=== PATIENT | female | born 1975 | race Two or more races ===

== ENCOUNTER 2018-05-18 11:27 | Emergency (ER) | payer BC ==
[2018-05-18] MEDS ORDERED: NORMAL SALINE 1000 ML 1,000 ML IV ONE (11:44)
[2018-05-18] MEDS ORDERED: KETOROLAC TROMETHAMINE INJ/PF 30 MG/1 ML SDV IV ONE (12:03)
[2018-05-18] MEDS ORDERED: ACETAMINOPHEN 325 MG TABLET PO ONE (12:04)
--- NOTE | 2018-05-18 12:07 | ER Document Report ---
ED General - General Chief Complaint: Pain All Over Stated Complaint: FEVER Time Seen by Provider: 05/18/18 11:37 TRAVEL OUTSIDE OF THE [place] IN LAST 30 DAYS: No - HPI Notes: Patient is a 42-year-old female that presents to the emergency department for chief complaint of fever. Patient began having a fever last night. She also reports dysuria with a malodor to her urine for the last few days. She states today she noticed diffuse body aching and cramping in her legs. She has not taken any medication at home for her pain. She denies any aggravating or relieving factors. She did not get a influenza vaccine this year. She denies any sinus congestion cough, chest pain or shortness of breath. She does endorse some nausea with no vomiting or diarrhea. Last night she had a brief episode of left upper quadrant abdominal pain which she states is now resolved. Patient is Frisian-speaking and HPI was translated by family at bedside. Past Medical History: Hyperthyroidism Past Surgical History: , appendectomy Social History: Occasional alcohol. Denies tobacco and drug use Family History: Reviewed and noncontributory for presenting illness Allergies: Reviewed, see documented allergy list. REVIEW OF SYSTEMS: CONSTITUTIONAL : fever chills No diaphoresis No recent illness EENT: No vision changes No congestion No sore throat CARDIOVASCULAR: No chest pain No palpitations RESPIRATORY: No shortness of breath No cough No difficulty breathing GASTROINTESTINAL: abdominal pain nausea No vomiting No diarrhea GENITOURINARY: dysuria No hematuria No difficulty urinating MUSCULOSKELETAL: No back pain No leg pain No arm pain SKIN: No rashes No lesions LYMPHATIC: No swollen, enlarged glands. NEUROLOGICAL: No lightheadedness No headache No weakness No paresthesias PSYCHIATRIC: No anxiety No depression PHYSICAL EXAMINATION: Vital signs reviewed, nursing noted reviewed. GENERAL: Well-appearing, well-nourished and in no acute distress. HEAD: Atraumatic, normocephalic. EYES: Eyes appear normal, extraocular movements intact, sclera anicteric, conjunctiva are normal. ENT: nares patent, oropharynx clear without exudates. Moist mucous membranes. NECK: Normal range of motion, supple without lymphadenopathy LUNGS: Breath sounds clear to auscultation bilaterally and equal. No wheezes rales or rhonchi. HEART: Tachycardic and regular rhythm without murmurs ABDOMEN: Soft, nontender, normoactive bowel sounds. No rebound, guarding, or rigidity. No masses appreciated. EXTREMITIES: Nontender, good range of motion, no pitting or edema. NEUROLOGICAL: No focal neurological deficits. Moves all extremities spontaneou sly Motor and sensory grossly intact on exam. PSYCH: Normal mood, normal affect. SKIN: Warm, Dry, normal turgor, no rashes or lesions noted on exposed skin - Related Data Allergies/Adverse Reactions: No Known Allergies Allergy (Unverified 05/18/18 11:31) Past Medical History - Social History Smoking Status: Never Smoker Family History: Reviewed & Not Pertinent Physical Exam - Vital signs Vitals: Temp Pulse Resp BP Pulse Ox 100.6 F H 129 H 18 130/82 H 98 05/18/18 11:34 05/18/18 11:34 05/18/18 11:34 05/18/18 11:34 05/18/18 11:34 Course - Re-evaluation Re-evalutation: 05/18/18 12:06 Vitals reviewed. Nursing notes reviewed. Patient is febrile and was given Toradol, Tylenol, and IV fluids for symptomatic management 05/18/18 13:44 Laboratory 05/18/18 05/18/18 05/18/18 12:02 12:02 12:02 WBC 10.0 RBC 4.39 Hgb 12.6 Hct 37.1 MCV 85 MCH 28.8 MCHC 34.0 RDW 14.4 H Plt Count 347 Total Counted 100 Seg Neutrophils % Not Reportable Seg Neuts % (Manual) 93 H Band Neutrophils % 4 Lymphocytes % Not Reportable Lymphocytes % (Manual) 2 L Monocytes % Not Reportable Monocytes % (Manual) 0 L Eosinophils % Not Reportable Eosinophils % (Manual) 1 Basophils % Not Reportable Basophils % (Manual) 0 Absolute Neutrophils Not Reportable Abs Neuts (Manual) 9.7 H Absolute Lymphocytes Not Reportable Abs Lymphs (Manual) 0.2 L Absolute Monocytes Not Reportable Abs Monocytes (Manual) 0.0 L Absolute Eosinophils Not Reportable Absolute Eos (Manual) 0.1 Absolute Basophils Not Reportable Abs Basophils (Manual) 0.0 Toxic Granulation SLIGHT Platelet Comment ADEQUATE RBC Morph Comment NORMO-CYTIC/CHROMIC VBG pH VBG pCO2 VBG HCO3 VBG Base Excess Sodium 140.0 Potassium 4.0 Chloride 103 Carbon Dioxide 24 Anion Gap 13 BUN 12 Creatinine 0.76 Est GFR ( Amer) > 60 Est GFR (Non-Af Amer) > 60 Glucose 110 Lactic Acid 1.5 Calcium 9.4 Total Bilirubin 0.7 Direct Bilirubin 0.3 Neonat Total Bilirubin Not Reportable Neonat Direct Bilirubin Not Reportable Neonat Indirect Bili Not Reportable AST 24 ALT 9 Alkaline Phosphatase 93 Total Protein 8.0 Albumin 4.5 Urine Color Urine Appearance Urine pH Ur Specific [place] Urine Protein Urine Glucose (UA) Urine Ketones Urine Blood Urine Nitrite Urine Bilirubin Urine Urobilinogen Ur Leukocyte Esterase Urine WBC (Auto) Urine RBC (Auto) Urine Bacteria (Auto) Squamous Epi Cells Auto Urine Mucus (Auto) Urine Ascorbic Acid Urine HCG, Qual Influenza A (Rapid) Influenza B (Rapid) 05/18/18 05/18/18 05/18/18 12:02 12:02 12:18 WBC RBC Hgb Hct MCV MCH MCHC RDW Plt Count Total Counted Seg Neutrophils % Seg Neuts % (Manual) Band Neutrophils % Lymphocytes % Lymphocytes % (Manual) Monocytes % Monocytes % (Manual) Eosinophils % Eosinophils % (Manual) Basophils % Basophils % (Manual) Absolute Neutrophils Abs Neuts (Manual) Absolute Lymphocytes Abs Lymphs (Manual) Absolute Monocytes Abs Monocytes (Manual) Absolute Eosinophils Absolute Eos (Manual) Absolute Basophils Abs Basophils (Manual) Toxic Granulation Platelet Comment RBC Morph Comment VBG pH 7.48 H VBG pCO2 33.4 L VBG HCO3 24.0 VBG Base Excess 1.0 Sodium Potassium Chloride Carbon Dioxide Anion Gap BUN Creatinine Est GFR ( Amer) Est GFR (Non-Af Amer) Glucose Lactic Acid Calcium Total Bilirubin Direct Bilirubin Neonat Total Bilirubin Neonat Direct Bilirubin Neonat Indirect Bili AST ALT Alkaline Phosphatase Total Protein Albumin Urine Color YELLOW Urine Appearance CLEAR Urine pH 7.0 Ur Specific [place] 1.005 Urine Protein NEGATIVE Urine Glucose (UA) NEGATIVE Urine Ketones NEGATIVE Urine Blood NEGATIVE Urine Nitrite NEGATIVE Urine Bilirubin NEGATIVE Urine Urobilinogen NEGATIVE Ur Leukocyte Esterase TRACE H Urine WBC (Auto) 4 Urine RBC (Auto) 1 Urine Bacteria (Auto) TRACE Squamous Epi Cells Auto 4 Urine Mucus (Auto) RARE Urine Ascorbic Acid NEGATIVE Urine HCG, Qual NEGATIVE Influenza A (Rapid) NEGATIVE Influenza B (Rapid) NEGATIVE Chest X-Ray 05/18/18 11:44 IMPRESSION: NO ACUTE RADIOGRAPHIC FINDING IN THE CHEST. on reevaluation patient states she is feeling better and appears nontoxic. Her diffuse muscle aching has improved. She is now complaining of some low back pain. She has no midline lumbar tenderness or paraspinal tenderness. Patient will be given Flexeril and Naprosyn for symptomatic management at home. Her urinalysis does show borderline urinary tract infection however with her having dysuria and low back pain she will be started on Keflex for UTI. Urine culture was sent. Patient is hemodynamically stable. She will be discharged home. She was counseled on increasing oral hydration and continuing Tylenol and ibuprofen as needed for fevers. She will return to the emergency room for any new or worsening symptoms. She will otherwise follow with primary care for close reevaluation as an outpatient. - Vital Signs Vital signs: Temp Pulse Resp BP Pulse Ox 100.6 F H 129 H 14 115/81 99 05/18/18 11:34 05/18/18 11:34 05/18/18 13:00 05/18/18 13:00 05/18/18 13:00 - Laboratory Result Diagrams: 05/18/18 12:02 05/18/18 12:02 Laboratory results interpreted by me: 05/18/18 05/18/18 05/18/18 12:02 12:02 12:02 RDW 14.4 H Seg Neuts % (Manual) 93 H Lymphocytes % (Manual) 2 L Monocytes % (Manual) 0 L Abs Neuts (Manual) 9.7 H Abs Lymphs (Manual) 0.2 L Abs Monocytes (Manual) 0.0 L VBG pH 7.48 H VBG pCO2 33.4 L Ur Leukocyte Esterase TRACE H Discharge - Discharge Clinical Impression: UTI (urinary tract infection) Qualifiers: Urinary tract infection type: site unspecified Hematuria presence: without hematuria Qualified Code(s): N39.0 - Urinary tract infection, site not specified Condition: Stable Disposition: HOME, SELF-CARE Instructions: Urinary Tract Infection ([facility]), Cephalexin ([facility]), Family Physicians / Practices Additional Instructions: Please return to the emergency department if you have any worsening, or concern of your symptoms. Please return to the emergency department if you develop chest pain, difficulty breathing, severe abdominal pain, or ongoing vomiting. Please follow-up with your primary care physician in 2-3 days and any other recommended physicians. If prescribed, take all medications as directed. If you have any questions or concerns do not hesitate to return the emergency department for evaluation. Return to the emergency room for any new or worsening symptoms including neck stiffness, headache, intractable vomiting, and abdominal pain Prescriptions: Cephalexin Monohydrate [Keflex 500 mg Capsule] 500 mg PO Q6H 5 Days capsule Cyclobenzaprine HCl [Flexeril 10 mg Tablet] 10 mg PO TIDP PRN #14 tablet PRN Reason: Pain Scale Of 1 Naproxen 500 mg PO BID PRN #30 tablet PRN Reason: Pain Referrals: [facility] [Provider Group] - Follow up as needed
[2018-05-18 12:18] LABS: VENOUS BLOOD PCO2 33.4 mmHg (35-63); VENOUS BLOOD PH 7.48 (7.30-7.42)
[2018-05-18 12:22] LABS: HEMATOCRIT 37.1 % (36.0-47.0); HEMOGLOBIN 12.6 g/dL (12.0-15.5); MEAN CORPUSCULAR HEMOGLOBIN 28.8 pg (27.0-33.4); MEAN CORPUSCULAR VOLUME 85 fl (80-97); PLATELET COUNT 347 10^3/uL (150-450); RED BLOOD COUNT 4.39 10^6/uL (3.72-5.28); RED CELL DISTRIBUTION WIDTH 14.4 % (11.5-14.0)
--- NOTE | 2018-05-18 12:24 | RADIOLOGY REPORT (SQ) ---
EXAM DESCRIPTION: CHEST SINGLE VIEW COMPLETED DATE/TIME: 05/18/2018 12:13 pm REASON FOR STUDY: BED 14 SEPSIS PROTOCOL COMPARISON: None. EXAM PARAMETERS: NUMBER OF VIEWS: One view. TECHNIQUE: Single frontal radiographic view of the chest acquired. RADIATION DOSE: NA LIMITATIONS: None. FINDINGS: LUNGS AND PLEURA: No opacities, masses or pneumothorax. No pleural effusion. MEDIASTINUM AND HILAR STRUCTURES: No masses. Contour normal. HEART AND VASCULAR STRUCTURES: Heart normal in size. Normal vasculature. BONES: No acute findings. HARDWARE: None in the chest. OTHER: No other significant finding. IMPRESSION: NO ACUTE RADIOGRAPHIC FINDING IN THE CHEST. TECHNICAL DOCUMENTATION: JOB ID: [id number] [employer]- All Rights Reserved Reading location - IP/workstation name: [facility]-[email or web address]
[2018-05-18 12:29] LABS: ALANINE AMINOTRANSFERASE 9 U/L (9-52); ALBUMIN 4.5 g/dL (3.5-5.0); ALKALINE PHOSPHATASE 93 U/L (38-126); ANION GAP 13 (5-19); ASPARTATE AMINO TRANSFERASE 24 U/L (14-36); BILIRUBIN,DIRECT 0.3 mg/dL (0.0-0.4); BILIRUBIN,TOTAL 0.7 mg/dL (0.2-1.3); BLOOD UREA NITROGEN 12 mg/dL (7-20); CALCIUM 9.4 mg/dL (8.4-10.2); CARBON DIOXIDE 24 mmol/L (22-30); CHLORIDE 103 mmol/L (98-107); GLUCOSE 110 mg/dL (75-110)
[2018-05-18 12:52] LABS: A TYPE INFLUENZA AG NEGATIVE (NEGATIVE); B INFLUENZA AG NEGATIVE (NEGATIVE)
[2018-05-18 12:52] LABS: APPEARANCE,URINE CLEAR; BILIRUBIN,URINE NEGATIVE (NEGATIVE); COLOR,URINE YELLOW; GLUCOSE, URINE NEGATIVE (NEGATIVE); KETONES,URINE NEGATIVE (NEGATIVE); LEUKOCYTE ESTERASE,URINE TRACE (NEGATIVE); NITRITE,URINE NEGATIVE (NEGATIVE); PROTEIN,URINE NEGATIVE (NEGATIVE); URINE SPECIFIC GRAVITY 1.005; UROBILINOGEN,URINE NEGATIVE mg/dL (<2.0)
[2018-05-18 12:57] LABS: ABSOLUTE LYMPHOCYTES# (MANUAL) 0.2 10^3/uL (0.5-4.7); ABSOLUTE NEUTROPHILS# (MANUAL) 9.7 10^3/uL (1.7-8.2); BAND NEUTROPHILS % (MANUAL) 4 % (3-5); BASOPHILS % (MANUAL) 0 % (0-2); EOSINOPHILS % (MANUAL) 1 % (0-6); LYMPHOCYTES % (MANUAL) 2 % (13-45); MONOCYTES % (MANUAL) 0 % (3-13); PLATELET COMMENT ADEQUATE; RBC MORPHOLOGY COMMENT NORMO-CYTIC/CHROMIC; SEGMENTED NEUTROPHILS % (MAN) 93 % (42-78); TOTAL CELLS COUNTED 100; TOXIC GRANULATION SLIGHT
[2018-05-18] MEDS ORDERED: CYCLOBENZAPRINE HCL 10 MG TABLET PO ONE (13:44)
[2018-05-18] MEDS ORDERED: CEPHALEXIN 500 MG CAPSULE PO ONE (13:44)
[2018-05-18 14:42] VITALS: BP 126/72
== END 2018-05-18 14:31 | disposition home or self-care (01) ==
LOC: ER 11:27
DX: N39.0 Urinary tract infection, site not specified (principal); M79.10 Myalgia, unspecified site; R50.9 Fever, unspecified
CPT/HCPCS: 99284; 96361; 96374; 36415; 87040; 87086; 85025; 81025; 87088; 80053; 81001; 87186; 82803; 83605; 87804; 71045; J1885; J7030

== ENCOUNTER → 2018-06-13 | Outpatient (CLI) | payer BC ==
--- NOTE | 2018-06-13 13:38 | WOMENS IMAGING REPORT ---
EXAM DESCRIPTION: BILAT DIAGNOSTIC MAMMO W/CAD COMPLETED DATE/TIME: 06/13/2018 1:25 pm REASON FOR STUDY: N63.23 UNSPECIFIED LUMP IN THE LEFT BREAST, LOWER OUTER QUADRANT N63.23 UNSPECIFI ED LUMP IN THE LEFT BREAST, LOWER OUTER QUAD E04.9 NONTOXIC GOITER, UNSPECIFIED COMPARISON: None. TECHNIQUE: Standard craniocaudal and mediolateral oblique views of each breast recorded using digita l acquisition. True lateral view left breast. LIMITATIONS: None. FINDINGS: RIGHT BREAST MASSES: No suspicious masses. CALCIFICATIONS: No new or suspicious calcifications. ARCHITECTURAL DISTORTION: None. DEVELOPING DENSITY: None. ASYMMETRY: None noted. OTHER: No other significant findings. LEFT BREAST MASSES: No suspicious masses. CALCIFICATIONS: No new or suspicious calcifications. ARCHITECTURAL DISTORTION: None. DEVELOPING DENSITY: None. ASYMMETRY: None noted. OTHER: No other significant finding. Read with the assistance of CAD: .[facility] - R2 Cenova Version 1.3 .[facility] Imaging - R2 Cenova Version 1.3 .[facility] Imaging - R2 Cenova Version 2.4 .[facility] - R2 Cenova Version 2.4 .[facility] - R2 Brush Filler Hand Version 9.2 Patient reports left breast pain but no palpable abnormality. IMPRESSION: No evidence of malignancy. BREAST DENSITY: b. There are scattered areas of fibroglandular density. BIRAD: 1 Negative. RECOMMENDATION: RECOMMENDED FOLLOW UP: Birads 1 or 2: No breast imaging finding to explain the patie nt's presenting complaint. Further intervention should be based on the degree of clinical suspicion. SPECIFIC INTERVENTION/IMAGING/CONSULTATION RECOMMENDED:No additional intervention/ imaging/consultati on needed at this time. COMMUNICATION:The imaging findings were not discussed with the patient. Her referring provider has be en notified of the findings. COMMENT: The patient has been notified of the results by letter per SA requirements. Additional no tification policies are in place for contacting patient with suspicious or incomplete findings. Quality ID #[id number]: The [employer] recommends an annual screening mammogram for women aged 40 years or over. This facility utilizes a reminder system to ensure that all patients receive reminder letters, and/or direct phone calls for appointments. This includes reminders for routine scr eening mammograms, diagnostic mammograms, or other Breast Imaging Interventions when appropriate. Th is patient will be placed in the appropriate reminder system. The [employer] (ACR) has developed recommendations for screening MRI of the breast s in certain patient populations, to be used in conjunction with mammography. Breast MRI surveillanc e may be appropriate for women with more than 20% lifetime risk of developing breast cancer as deter mined by genetic testing, significant family history of the disease, or history of mantle radiation f or Hodgkins Disease. ACR Practice Guidelines 2008. TECHNICAL DOCUMENTATION: FINDING NUMBER: (1) ASSESSMENT: (1) JOB ID: [id number] [employer]- All Rights Reserved Reading location - IP/workstation name: [email or web address]
--- NOTE | 2018-06-13 14:12 | WOMENS IMAGING REPORT ---
EXAM DESCRIPTION: U/S THYROID/ST TIS HEAD NECK COMPLETED DATE/TIME: 06/13/2018 1:45 pm REASON FOR STUDY: E04.9 NONTOXIC GOITER, UNSPECIFIED N63.23 UNSPECIFIED LUMP IN THE LEFT BREAST, LO WER OUTER QUAD E04.9 NONTOXIC GOITER, UNSPECIFIED COMPARISON: None. TECHNIQUE: Dynamic and static haas-scale images acquired of the thyroid gland. Selected additional c olor/power Doppler images recorded. All images stored to PACS. LIMITATIONS: None. FINDINGS: RIGHT LOBE: 5.0 x 2.2 x 2.0 cm. Heterogeneous echotexture. No cystic or solid masses. LEFT LOBE: 5.3 x 1.8 x 2.4 cm. Heterogeneous echotexture. No cystic or solid masses. ISTHMUS: 8 mm. Heterogeneous echotexture. No cystic or solid masses. OTHER: No other significant finding. IMPRESSION: Enlarged heterogeneous gland. TECHNICAL DOCUMENTATION: JOB ID: [id number] [employer]- All Rights Reserved Reading location - IP/workstation name: [facility]
== END ==
LOC: WI 12:51
PROVIDERS: ATTEND Nurse Practitioner Family
DX: E04.9 Nontoxic goiter, unspecified (principal); N63.23 Unspecified lump in the left breast, lower outer quadrant; M79.643 Pain in unspecified hand
CPT/HCPCS: 76536; 77066

== ENCOUNTER → 2018-11-22 | Outpatient (CLI) | payer BC | LOC: OD 09:10 | PROVIDERS: ATTEND Internal Medicine | DX: E03.9 Hypothyroidism, unspecified (principal) | CPT/HCPCS: 36415; 84443 ==

== ENCOUNTER 2019-06-02 23:29 | Emergency (ER) | payer SELFPAY ==
[2019-06-03] MEDS ORDERED: ACETAMINOPHEN 325 MG TABLET PO ONE (00:38)
[2019-06-03 02:01] LABS: ABSOLUTE BASOPHILS # (AUTO) 0.1 10^3/uL (0.0-0.2); ABSOLUTE EOSINOPHILS # (AUTO) 0.3 10^3/uL (0.0-0.6); ABSOLUTE LYMPHOCYTES (AUTO) 3.1 10^3/uL (0.5-4.7); ABSOLUTE MONOCYTES (AUTO) 1.1 10^3/uL (0.1-1.4); ABSOLUTE NEUT (AUTO) 6.1 10^3/uL (1.7-8.2); BASOPHILS % (AUTO) 0.8 % (0-2); EOSINOPHILS % (AUTO) 2.5 % (0-6); HEMATOCRIT 36.9 % (36.0-47.0); HEMOGLOBIN 12.2 g/dL (12.0-15.5); LYMPHOCYTES % (AUTO) 29.3 % (13-45); MEAN CORPUSCULAR HEMOGLOBIN 27.4 pg (27.0-33.4); MEAN CORPUSCULAR HGB CONC 33.2 g/dL (32.0-36.0); MEAN CORPUSCULAR VOLUME 83 fl (80-97); PLATELET COUNT 325 10^3/uL (150-450); RED BLOOD COUNT 4.47 10^6/uL (3.72-5.28); RED CELL DISTRIBUTION WIDTH 15.6 % (11.5-14.0); SEGMENTED NEUTROPHILS % (AUTO) 57.4 % (42-78); TOTAL CELLS COUNTED % (AUTO) 100 %; WHITE BLOOD COUNT 10.7 10^3/uL (4.0-10.5)
[2019-06-03 02:17] LABS: ALBUMIN 4.6 g/dL (3.5-5.0); ALKALINE PHOSPHATASE 92 U/L (38-126); ANION GAP 11 (5-19); ASPARTATE AMINO TRANSFERASE 25 U/L (14-36); BILIRUBIN,DIRECT 0.2 mg/dL (0.0-0.4); BILIRUBIN,TOTAL 0.5 mg/dL (0.2-1.3); BLOOD UREA NITROGEN 11 mg/dL (7-20); CALCIUM 9.8 mg/dL (8.4-10.2); CARBON DIOXIDE 25 mmol/L (22-30); CHLORIDE 102 mmol/L (98-107); GLUCOSE 124 mg/dL (75-110); POTASSIUM 4.2 mmol/L (3.6-5.0); TOTAL PROTEIN 8.5 g/dL (6.3-8.2)
[2019-06-03 02:28] LABS: APPEARANCE,URINE SLIGHTLY-CLOUDY; BILIRUBIN,URINE NEGATIVE (NEGATIVE); COLOR,URINE YELLOW; GLUCOSE, URINE NEGATIVE (NEGATIVE); KETONES,URINE NEGATIVE (NEGATIVE); LEUKOCYTE ESTERASE,URINE LARGE (NEGATIVE); NITRITE,URINE POSITIVE (NEGATIVE); PROTEIN,URINE 30 mg/dL (NEGATIVE); URINE SPECIFIC GRAVITY 1.009; UROBILINOGEN,URINE NEGATIVE mg/dL (<2.0)
[2019-06-03] MEDS ORDERED: CEFTRIAXONE INJ 1000 MG VIAL IM ONE (05:41)
[2019-06-03] MEDS ORDERED: LIDOCAINE 1% INJ-PF (10 MG/ML) 30 ML SDV INJ ONE (05:41)
[2019-06-03] MEDS ORDERED: OXYCODONE HCL IR 5 MG TABLET PO ONE (05:41)
[2019-06-03] MEDS ORDERED: ONDANSETRON 4 MG TAB.RAPDIS PO ONE (05:41)
[2019-06-03] MEDS ORDERED: HYDROCODONE/ACETAMINOPHEN 5-325 MG (6 TAB/ER DISP) PO PRN (05:42)
--- NOTE | 2019-06-03 05:45 | ER Document Report ---
ED GI/ - General Chief Complaint: Flank Pain Stated Complaint: ABDOMINAL PAIN AND BACK PAIN Time Seen by Provider: 06/03/19 05:32 Notes: Patient is a 43-year-old female that comes to the emergency department for chief complaint of 3 days of worsening pain with urination, lower abdominal discomfort, and now she is starting to get pain mainly on the right side as well. Pain has been slowly progressive. She denies vomiting or nausea. She s tates she felt chills earlier today but she denies fever. She does not take any daily medications. She has had an appendectomy and hysterectomy. Patient speaks mainly Azeri and requests that her son at bedside translate for her. TRAVEL OUTSIDE OF THE [place] IN LAST 30 DAYS: No - Related Data Allergies/Adverse Reactions: No Known Allergies Allergy (Unverified 05/18/18 11:31) Home Medications: stopped thyroid 1 mnth ago no medicaid. Past Medical History - General Information source: Patient - Social History Smoking Status: Former Smoker Frequency of alcohol use: None Drug Abuse: None Lives with: Family Family History: Reviewed & Not Pertinent Patient has suicidal ideation: No Patient has homicidal ideation: No Renal/ Medical History: Denies: Hx Peritoneal Dialysis Past Surgical History: Reports: Hx Appendectomy, Hx Section - Immunizations Immunizations up to date: Yes Hx Diphtheria, Pertussis, Tetanus Vaccination: Yes Review of Systems - Review of Systems Constitutional: See HPI EENT: No symptoms reported Cardiovascular: No symptoms reported Respiratory: No symptoms reported Gastrointestinal: See HPI Genitourinary: See HPI Female Genitourinary: No symptoms reported Musculoskeletal: No symptoms reported Skin: No symptoms reported Hematologic/Lymphatic: No symptoms reported Neurological/Psychological: No symptoms reported Physical Exam - Vital signs Vitals: Temp Pulse Resp BP Pulse Ox 99.5 F 88 16 131/83 H 99 06/02/19 23:35 06/02/19 23:35 06/02/19 23:35 06/02/19 23:35 06/02/19 23:35 - Notes Notes: GENERAL: Alert, interacts well. No acute distress. Smiling talkative and well- appearing HEAD: Normocephalic, atraumatic. EYES: Pupils equal, round, and reactive to light. Extraocular movements intact. ENT: Oral mucosa moist, tongue midline. Oropharynx unremarkable. Airway patent. NECK: Full range of motion. Supple. Trachea midline. LUNGS: Clear to auscultation bilaterally, no wheezes, rales, or rhonchi. No respiratory distress. HEART: Regular rate and rhythm. No murmur ABDOMEN: There is some generalized lower abdominal tenderness GENITOURINARY: Deferred EXTREMITIES: Moves all 4 extremities spontaneously. No edema, normal radial and dorsalis pedis pulses bilaterally. No cyanosis. BACK: There is some mild right-sided CVA tenderness. No cervical, thoracic, lumbar midline tenderness. No saddle anesthesia, normal distal neurovascular exam. Moves all extremities in full range of motion. NEUROLOGICAL: Alert and oriented x3. Normal speech. Cranial nerves II through XII grossly intact. PSYCH: Normal affect, normal mood. SKIN: Warm, dry, normal turgor. No rashes or lesions noted. Course - Re-evaluation Re-evalutation: Patient is talkative, smiling, well-appearing. Vital signs unremarkable. CBC, chemistry with mild leukocytosis but otherwise unremarkable. Patient has had a hysterectomy and appendectomy. Urine is obviously infected, she has some CVA tenderness on the right and some lower abdominal tenderness. Based on slowly progressively worsening symptoms I have a lower suspicion of kidney stone, I did discuss this with patient. No imaging will be performed at this time with suspected pyelonephritis, culture placed, given Rocephin, started on antibiotics, discussed expectations, follow-up, return precautions. Patient states appreciation and agreement. Well-appearing at time of discharge with unremarkable vital signs. - Vital Signs Vital signs: Temp Pulse Resp BP Pulse Ox 97.8 F 76 18 145/82 H 99 06/03/19 06:08 06/03/19 06:08 06/03/19 06:08 06/03/19 06:08 06/03/19 06:08 - Laboratory Result Diagrams: 06/03/19 01:44 06/03/19 01:44 Laboratory results interpreted by me: 06/03/19 06/03/19 06/03/19 01:39 01:44 01:44 WBC 10.7 H RDW 15.6 H Glucose 124 H Total Protein 8.5 H Urine Protein 30 H Urine Blood LARGE H Urine Nitrite POSITIVE H Ur Leukocyte Esterase LARGE H Discharge - Discharge Clinical Impression: Flank pain, Dysuria Abdominal pain Qualifiers: Abdominal location: lower abdomen, unspecified Qualified Code(s): R10.30 - Lower abdominal pain, unspecified Urinary tract infection Qualifiers: Urinary tract infection type: site unspecified Hematuria presence: with hematuria Qualified Code(s): N39.0 - Urinary tract infection, site not specified Condition: Stable Disposition: HOME, SELF-CARE Additional Instructions: Your evaluation is most consistent with a developing kidney infection. This is a urinary tract infection. Please take the antibiotics as prescribed, take the pain medication prescribed if needed, drink plenty fluids and rest. Follow-up with primary care for additional management. Come back if you are worse including vomiting, spiking fevers, severe worsening pain, or any other concerning or worsening symptoms. El paciente presenta quejas de tos patt los ltimos 3 whalen. El paciente tambin informa nuseas. El paciente se queja de molestias en el pecho que empeoran con la tos. El paciente tambin informa cierta dificultad para respirar. El paciente tiene antecedentes de diabetes. El paciente no est seguro si jones tenido fiebre en casa. Prescriptions: Cephalexin Monohydrate [Keflex 500 mg Capsule] 500 mg PO BID 7 Days #14 capsule Forms: Return to Work
[2019-06-03 06:14] VITALS: BP 145/82
== END 2019-06-03 06:14 | disposition home or self-care (01) ==
LOC: ER 23:29
DX: N39.0 Urinary tract infection, site not specified (principal); R31.9 Hematuria, unspecified; R30.0 Dysuria; R10.30 Lower abdominal pain, unspecified; R10.9 Unspecified abdominal pain; Z87.891 Personal history of nicotine dependence; Z90.49 Acquired absence of other specified parts of digestive tract; Z90.710 Acquired absence of both cervix and uterus
CPT/HCPCS: 99284; 96372; 96374; 36415; 87086; 83690; 84703; 85025; 87088; 80053; 81001; 87186; S0119; J3490; J0696

== ENCOUNTER 2019-12-08 11:49 | Emergency (ER) | payer BC ==
[2019-12-08] MEDS ORDERED: MORPHINE SULFATE 10 MG/ML INJ IV ONE (14:15)
[2019-12-08] MEDS ORDERED: ONDANSETRON HCL INJ/PF 4 MG/2 ML SDV IV ONE ×2 (14:16→16:51)
[2019-12-08 14:26] LABS: APPEARANCE,URINE SLIGHTLY-CLOUDY; BILIRUBIN,URINE NEGATIVE (NEGATIVE); COLOR,URINE YELLOW; GLUCOSE, URINE NEGATIVE (NEGATIVE); KETONES,URINE NEGATIVE (NEGATIVE); LEUKOCYTE ESTERASE,URINE LARGE (NEGATIVE); NITRITE,URINE NEGATIVE (NEGATIVE); PROTEIN,URINE NEGATIVE (NEGATIVE); URINE SPECIFIC GRAVITY 1.004; UROBILINOGEN,URINE NEGATIVE mg/dL (<2.0)
[2019-12-08] MEDS: NORMAL SALINE 1000 ML 1,000 ML IV PRN ×2 (14:40→16:15)
[2019-12-08] MEDS ORDERED: NORMAL SALINE 1000 ML 1,000 ML IV ONE (14:52)
[2019-12-08] MEDS ORDERED: LEVOFLOXACIN 750 MG/D5W RTU 750 MG/150 ML RTUPB IV ONE (14:53)
[2019-12-08 15:07] LABS: ABSOLUTE BASOPHILS # (AUTO) 0.1 10^3/uL (0.0-0.2); ABSOLUTE EOSINOPHILS # (AUTO) 0.2 10^3/uL (0.0-0.6); ABSOLUTE LYMPHOCYTES (AUTO) 2.3 10^3/uL (0.5-4.7); ABSOLUTE MONOCYTES (AUTO) 0.8 10^3/uL (0.1-1.4); ABSOLUTE NEUT (AUTO) 8.3 10^3/uL (1.7-8.2); BASOPHILS % (AUTO) 0.9 % (0-2); EOSINOPHILS % (AUTO) 2.1 % (0-6); HEMATOCRIT 38.5 % (36.0-47.0); HEMOGLOBIN 12.7 g/dL (12.0-15.5); LYMPHOCYTES % (AUTO) 19.2 % (13-45); MEAN CORPUSCULAR HEMOGLOBIN 27.9 pg (27.0-33.4); MEAN CORPUSCULAR HGB CONC 33.1 g/dL (32.0-36.0); MEAN CORPUSCULAR VOLUME 84 fl (80-97); MONOCYTES % (AUTO) 7.1 % (3-13); PLATELET COUNT 308 10^3/uL (150-450); RED BLOOD COUNT 4.56 10^6/uL (3.72-5.28); RED CELL DISTRIBUTION WIDTH 15.6 % (11.5-14.0); SEGMENTED NEUTROPHILS % (AUTO) 70.7 % (42-78); TOTAL CELLS COUNTED % (AUTO) 100 %; WHITE BLOOD COUNT 11.8 10^3/uL (4.0-10.5)
[2019-12-08 15:31] LABS: ALBUMIN 4.5 g/dL (3.5-5.0); ALKALINE PHOSPHATASE 107 U/L (38-126); ANION GAP 10 (5-19); ASPARTATE AMINO TRANSFERASE 42 U/L (14-36); BILIRUBIN,DIRECT 0.1 mg/dL (0.0-0.4); BILIRUBIN,TOTAL 0.6 mg/dL (0.2-1.3); BLOOD UREA NITROGEN 13 mg/dL (7-20); CALCIUM 9.4 mg/dL (8.4-10.2); CARBON DIOXIDE 25 mmol/L (22-30); CHLORIDE 101 mmol/L (98-107); GLUCOSE 105 mg/dL (75-110); TOTAL PROTEIN 8.5 g/dL (6.3-8.2)
[2019-12-08] MEDS ORDERED: HYDROMORPHONE HCL INJ/PF 2 MG/ML AMPULE IV ONE (16:50)
--- NOTE | 2019-12-08 18:01 | RADIOLOGY REPORT (SQ) ---
EXAM DESCRIPTION: CT ABD/PELVIS WITH IV ONLY IMAGES COMPLETED DATE/TIME: 12/08/2019 4:18 pm REASON FOR STUDY: left flank pain. Patient states right flank pain. Prior appendectomy. COMPARISON: None. TECHNIQUE: CT scan of the abdomen and pelvis performed using helical scanning technique with dynamic intravenous contrast injection. No oral contrast. Images reviewed with lung, soft tissue, and bone windows. Reconstructed coronal and sagittal MPR images reviewed. Delayed images for evaluation of the urinary system also acquired. All images stored on PACS. All CT scanners at this facility use dose modulation, iterative reconstruction, and/or weight based d osing when appropriate to reduce radiation dose to as low as reasonably achievable (ALARA). [facility]: Dose Right [facility]: CareDose [facility]: Dose Right [facility]: Teradose 4D [facility]: MD [employer] CONTRAST TYPE AND DOSE: contrast/concentration: Isovue 350.00 mmol/ml; Total Contrast Delivered: 89. 0 ml; Total Saline Delivered: 70.0 ml RENAL FUNCTION: GFR > 60. RADIATION DOSE: CT Rad equipment meets quality standard of care and radiation dose reduction techniq ues were employed. CTDIvol: 14.2 - 14.3 mGy. DLP: 1482 mGy-cm.. LIMITATIONS: None. FINDINGS: LOWER CHEST: No significant findings. No nodules or infiltrates. LIVER: The liver has normal size and contour. There is severe diffuse hepatic steatosis. No focal h epatic mass. Hepatic and portal veins are patent. No biliary ductal dilation. SPLEEN: Normal size. No focal lesions. PANCREAS: No masses. No significant calcifications. No adjacent inflammation or peripancreatic fluid collections. Pancreatic duct not dilated. GALLBLADDER: No identified stones by CT criteria. No inflammatory changes to suggest cholecystitis. ADRENAL GLANDS: No significant masses or asymmetry. RIGHT KIDNEY AND URETER: There is heterogeneous enhancement at the superior pole right kidney with jewell ggestion of wedge shaped appearance. An indeterminate 1.3 cm lesion at the medial superior right kid larry may represent part of this process, however is technically indeterminate. No renal or ureteral c alculi. Mild right hydronephrosis and hydroureter. No definitive transition point. No obstructio n. No perinephric or periureteral inflammatory change or fluid. LEFT KIDNEY AND URETER: No solid masses. No significant calcifications. No hydronephrosis or hydr oureter. AORTA AND VESSELS: No aneurysm. No dissection. Renal arteries, SMA, celiac without stenosis. RETROPERITONEUM: No retroperitoneal adenopathy, hemorrhage or masses. BOWEL AND PERITONEAL CAVITY: No masses or inflammatory changes. No free fluid or peritoneal masses. APPENDIX: Normal. PELVIS: Heterogeneously enhancing left adnexal mass, completely separate from the left ovary which jones s normal size. This appears to be attached to the left lower uterine segment measuring about 5.6 x 4 .9 cm and demonstrates heterogeneous enhancement. This likely represents a low uterine leiomyoma, ho wever is indeterminate. The right ovary has normal size and position. Urinary bladder has normal co ntour. No bladder wall thickening, intraluminal bladder mass or debris. ABDOMINAL WALL: No masses. No hernias. BONES: No significant or acute findings. OTHER: No other significant finding. IMPRESSION: 1. Heterogeneous enhancement of the superior pole right kidney may represent acute pyelonephritis. C linical correlation and correlation with urinalysis is recommended. 2. There may be an underlying indeterminate right superior pole renal cortical lesion. A follow-up d edicated renal protocol MRI or CT on a nonemergent basis is recommended for complete evaluation after treatment for acute infectious process. 3. Severe hepatic steatosis. 4. Probable low left uterine leiomyoma in the left adnexa. MRI may provide additional characterizati on as clinically indicated. TECHNICAL DOCUMENTATION: JOB ID: [id number] Quality ID # [id number]: Final reports with documentation of one or more dose reduction techniques (e.g., Au tomated exposure control, adjustment of the mA and/or kV according to patient size, use of iterative reconstruction technique) 2010 [id number]- All Rights Reserved Reading location - IP/workstation name: [id number]
[2019-12-08] MEDS ORDERED: HYDROCODONE/ACETAMINOPHEN 5-325 MG (6 TAB/ER DISP) PO PRN (18:51)
[2019-12-08 19:26] VITALS: BP 138/72
--- NOTE | 2019-12-11 09:49 | ER Document Report ---
Entered by LIDIA BARNES SCRIBE 12/08/19 1418 Acting as scribe for:GEO SIMON MD ED GI/ - General Information source: Patient TRAVEL OUTSIDE OF THE [place] IN LAST 30 DAYS: No <GEO SIMON - Last Filed: 12/08/19 16:48> <SIA PAGE - Last Filed: 12/08/19 18:53> - General Chief Complaint: Flank Pain Stated Complaint: RIGHT FLANK PAIN,NAUSEA Time Seen by Provider: 12/08/19 13:12 Notes: This 43 year old female patient presents to the emergency department today with complaints of right flank pain. Patient states she has had right flank pain that radiates to the RLQ of her abdomen and nausea since yesterday. Patient denies vomiting and states she is not . Denies traveling or any known covid contact. (GEO SIMON) - Related Data Allergies/Adverse Reactions: No Known Allergies Allergy (Verified 12/08/19 13:35) Past Medical History - General Information source: Patient - Social History Smoking Status: Unknown if Ever Smoked Drug Abuse: None Lives with: Family Family History: Reviewed & Not Pertinent Past Surgical History: Reports: Hx Appendectomy, Hx Section - Immunizations Immunizations up to date: Yes Hx Diphtheria, Pertussis, Tetanus Vaccination: Yes <GEO SIMON - Last Filed: 12/08/19 16:48> Review of Systems - Review of Systems Constitutional: No symptoms reported EENT: No symptoms reported Cardiovascular: No symptoms reported Respiratory: No symptoms reported Gastrointestinal: See HPI, Abdominal pain - RLQ, Nausea. denies: Vomiting Genitourinary: See HPI, Flank pain - R Female Genitourinary: See HPI. denies: Musculoskeletal: No symptoms reported Skin: No symptoms reported Hematologic/Lymphatic: No symptoms reported Neurological/Psychological: No symptoms reported -: Yes All other systems reviewed and negative <GEO SIMON - Last Filed: 12/08/19 16:48> Physical Exam - General General appearance: Alert, Other - Appears non-toxic - HEENT Head: Normocephalic, Atraumatic Eyes: Normal Pupils: PERRL - Respiratory Respiratory status: No respiratory distress Chest status: Nontender Breath sounds: Normal Chest palpation: Normal - Cardiovascular Rhythm: Regular Heart sounds: Normal auscultation Murmur: No - Abdominal Inspection: Normal Distension: No distension Bowel sounds: Normal Tenderness: Tender - RLQ, Guarding - mild. No: Rebound - Extremities General upper extremity: Normal inspection. No: Edema General lower extremity: Normal inspection. No: Edema - Neurological Neuro grossly intact: Yes Cognition: Normal Orientation: AAOx4 Speech: Normal - Psychological Associated symptoms: Normal affect, Normal mood - Skin Skin Temperature: Warm Skin Moisture: Dry Skin Color: Normal <GEO SIMON - Last Filed: 12/08/19 16:48> - Vital signs Vitals: Temp Pulse Resp BP Pulse Ox 99.5 F 96 20 150/92 H 97 12/08/19 11:54 12/08/19 11:54 12/08/19 11:54 12/08/19 11:54 12/08/19 11:54 - Back Notes: Tenderness with palpation to the right flank. (GEO SIMON) Course - Laboratory Result Diagrams: 12/08/19 14:35 12/08/19 14:35 - Diagnostic Test Radiology reviewed: Pending <GEO SIMON - Last Filed: 12/08/19 16:48> - Laboratory Result Diagrams: 12/08/19 14:35 12/08/19 14:35 <SIA PAGE - Last Filed: 12/08/19 18:53> - Re-evaluation Re-evalutation: 12/08/19 18:46 MDM Received this pt in turnover from Dr. Simon. Awaiting ct at that time. Ct is reviewed. Diagnosis of pyelonephritis. She has follow up instructions in cluding to have MRI of abd in follow up. Also given return precautions. (SIA PAGE) - Vital Signs Vital signs: Temp Pulse Resp BP Pulse Ox 99.5 F 96 20 150/92 H 97 12/08/19 11:54 12/08/19 11:54 12/08/19 11:54 12/08/19 11:54 12/08/19 11:54 12/08/19 16:48 Vital signs stable (GEO SIMON) - Laboratory Laboratory results interpreted by me: 12/08/19 12/08/19 12/08/19 14:10 14:35 14:35 WBC 11.8 H RDW 15.6 H Absolute Neuts (auto) 8.3 H Sodium 135.8 L AST 42 H ALT 40 H Total Protein 8.5 H Urine Blood SMALL H Ur Leukocyte Esterase LARGE H Laboratories disclose 11.8 white count and a large leukocyte Estrace positive urine cloudy urine with 3+ bacteria consistent with urinary tract infection. Patient also has CVA tenderness bilateral right greater than left and we currently pending CT scan to rule out Jorje or any perinephric abscess , or obstructive objective findings on CT scan. (GEO SIMON) - Transfer of Care Notes: 12/08/19 16:52 Transfer Care of patient to Dr Pisano. (GEO SIMON) Discharge <GEO SIMON - Last Filed: 12/08/19 16:48> <SIA PAGE - Last Filed: 12/08/19 18:53> - Discharge Clinical Impression: Right flank pain Urinary tract infection Qualifiers: Urinary tract infection type: site unspecified Hematuria presence: with hematuria Qualified Code(s): N39.0 - Urinary tract infection, site not specified; R31.9 - Hematuria, unspecified Condition: Stable Disposition: HOME, SELF-CARE Instructions: Antinausea Medication ([facility]), Urinary Tract Infection ([facility]) Additional Instructions: Rest, fluids, please return here for any problems or any concerns including inability to tolerate medicines or persistent vomiting. You need an MRI of the abdomen/ pelvis in follow up to further evaluate the anatomy of the kidney and other organs. Prescriptions: Ondansetron [Zofran Odt 4 mg Tablet] 1 - 2 tab PO Q4HP PRN #10 tab.rapdis PRN Reason: Cephalexin Monohydrate [Keflex 500 mg Capsule] 500 mg PO TID #30 capsule I personally performed the services described in the documentation, reviewed and edited the documentation which was dictated to the scribe in my presence, and it accurately records my words and actions.
== END 2019-12-08 19:28 | disposition home or self-care (01) ==
LOC: ER 11:49
DX: N12 Tubulo-interstitial nephritis, not specified as acute or chronic (principal); R31.9 Hematuria, unspecified; R11.0 Nausea; Z90.49 Acquired absence of other specified parts of digestive tract
CPT/HCPCS: 96376; 99284; 96361; 96375; 96365; 36415; 87040; 83605; 83690; 85025; 81025; 87077; 80053; 81001; 87186; 87150 ×26; 74177; J2270; J1170; J2405; J7030; J1956

== ENCOUNTER 2019-12-10 15:01 | Emergency (ER) | payer BC ==
[2019-12-10 15:39] LABS: ABSOLUTE BASOPHILS # (AUTO) 0.1 10^3/uL (0.0-0.2); ABSOLUTE EOSINOPHILS # (AUTO) 0.3 10^3/uL (0.0-0.6); ABSOLUTE LYMPHOCYTES (AUTO) 2.5 10^3/uL (0.5-4.7); ABSOLUTE MONOCYTES (AUTO) 0.8 10^3/uL (0.1-1.4); ABSOLUTE NEUT (AUTO) 4.8 10^3/uL (1.7-8.2); BASOPHILS % (AUTO) 0.9 % (0-2); HEMATOCRIT 34.7 % (36.0-47.0); HEMOGLOBIN 11.6 g/dL (12.0-15.5); LYMPHOCYTES % (AUTO) 29.5 % (13-45); MEAN CORPUSCULAR HGB CONC 33.4 g/dL (32.0-36.0); MEAN CORPUSCULAR VOLUME 84 fl (80-97); MONOCYTES % (AUTO) 9.4 % (3-13); PLATELET COUNT 315 10^3/uL (150-450); RED BLOOD COUNT 4.14 10^6/uL (3.72-5.28); RED CELL DISTRIBUTION WIDTH 15.3 % (11.5-14.0); SEGMENTED NEUTROPHILS % (AUTO) 57.2 % (42-78); TOTAL CELLS COUNTED % (AUTO) 100 %; WHITE BLOOD COUNT 8.5 10^3/uL (4.0-10.5)
[2019-12-10 15:45] LABS: APPEARANCE,URINE CLEAR; BILIRUBIN,URINE NEGATIVE (NEGATIVE); COLOR,URINE STRAW; GLUCOSE, URINE NEGATIVE (NEGATIVE); KETONES,URINE NEGATIVE (NEGATIVE); LEUKOCYTE ESTERASE,URINE TRACE (NEGATIVE); NITRITE,URINE NEGATIVE (NEGATIVE); PROTEIN,URINE NEGATIVE (NEGATIVE); URINE SPECIFIC GRAVITY 1.004
--- NOTE | 2019-12-10 15:48 | ER Document Report ---
ED Medical Screen (RME) - General Chief Complaint: Abnormal Lab Results Stated Complaint: ABNORMAL LABS Time Seen by Provider: 12/10/19 15:13 Notes: Patient is a 43-year-old female presents emergency department with a chief complaint of flank pain. Patient reports that she was seen here 2 days ago and diagnosed with pyelonephritis. She states she has been taking her antibiotics. Patient reports she feels better but does remain weak. Denies fever although she does not have the means to take her temperature at home. Denies nausea, vomiting or diarrhea. TRAVEL OUTSIDE OF THE [place] IN LAST 30 DAYS: No - Related Data Allergies/Adverse Reactions: No Known Allergies Allergy (Verified 12/08/19 13:35) Past Medical History - Social History Chew tobacco use (# tins/day): No Frequency of alcohol use: None Drug Abuse: None Renal/ Medical History: Denies: Hx Peritoneal Dialysis Past Surgical History: Reports: Hx Appendectomy, Hx Section - Immunizations Immunizations up to date: Yes Hx Diphtheria, Pertussis, Tetanus Vaccination: Yes Physical Exam - Vital signs Vitals: Temp Pulse Resp BP Pulse Ox 98.4 F 90 18 141/85 H 97 12/10/19 15:04 12/10/19 15:04 12/10/19 15:04 12/10/19 15:04 12/10/19 15:04 Course - Re-evaluation Re-evalutation: 12/10/19 15:47 Patient is not tachycardic, febrile or hypotensive at this time. Will obtain basic labs for comparison. Patient nontoxic-appearing. Patient be reevaluated by provider and back. I have greeted and performed a rapid initial assessment of this patient. A comprehensive ED assessment and evaluation of the patient, analysis of test results and completion of the medical decision making process will be conducted by additional ED providers. - Vital Signs Vital signs: Temp Pulse Resp BP Pulse Ox 98.4 F 90 18 141/85 H 97 12/10/19 15:04 12/10/19 15:04 12/10/19 15:04 12/10/19 15:04 12/10/19 15:04 - Laboratory Result Diagrams: 12/10/19 15:30 12/10/19 15:30 Laboratory results interpreted by me: 12/10/19 12/10/19 15:30 15:30 Hgb 11.6 L Hct 34.7 L RDW 15.3 H Urine Blood MODERATE H Urine Urobilinogen 2.0 H Ur Leukocyte Esterase TRACE H
[2019-12-10 15:58] LABS: ALKALINE PHOSPHATASE 91 U/L (38-126); ANION GAP 8 (5-19); ASPARTATE AMINO TRANSFERASE 47 U/L (14-36); BILIRUBIN,TOTAL 0.4 mg/dL (0.2-1.3); BLOOD UREA NITROGEN 10 mg/dL (7-20); CARBON DIOXIDE 28 mmol/L (22-30); CHLORIDE 102 mmol/L (98-107); GLUCOSE 151 mg/dL (75-110); POTASSIUM 3.9 mmol/L (3.6-5.0); TOTAL PROTEIN 7.6 g/dL (6.3-8.2)
[2019-12-10] MEDS ORDERED: CIPROFLOXACIN 400 MG/D5W RTU 400 MG/200 ML RTUPB IV ONE (18:45)
--- NOTE | 2019-12-10 19:18 | ER Document Report ---
ED General - General Chief Complaint: Abnormal Lab Results Stated Complaint: ABNORMAL LABS Time Seen by Provider: 12/10/19 15:13 TRAVEL OUTSIDE OF THE [place] IN LAST 30 DAYS: No - HPI Notes: Patient is a 43-year-old female who presents to the emergency department for evaluation. She was seen here 48 hours ago, diagnosed with pyelonephritis. She was sent home on Keflex. She states that she still has some flank pain but it is significantly improved. She said no fevers or chills. No nausea or vomitin g. She was contacted and told to come back because her blood culture was positive. - Related Data Allergies/Adverse Reactions: No Known Allergies Allergy (Verified 12/08/19 13:35) Past Medical History - General Information source: Patient - Social History Smoking Status: Never Smoker Chew tobacco use (# tins/day): No Frequency of alcohol use: None Drug Abuse: None Family History: Reviewed & Not Pertinent Patient has homicidal ideation: No Renal/ Medical History: Denies: Hx Peritoneal Dialysis Past Surgical History: Reports: Hx Appendectomy, Hx Section - Immunizations Immunizations up to date: Yes Hx Diphtheria, Pertussis, Tetanus Vaccination: Yes Review of Systems - Review of Systems Genitourinary: See HPI -: Yes All other systems reviewed and negative Physical Exam - Vital signs Vitals: Temp Pulse Resp BP Pulse Ox 98.4 F 90 18 141/85 H 97 12/10/19 15:04 12/10/19 15:04 12/10/19 15:04 12/10/19 15:04 12/10/19 15:04 - Notes Notes: Vital signs reviewed, please refer to chart. Head is normocephalic, atraumatic. Pupils equal round, reactive to light. Neck is supple without meningismus. Heart is regular rate and rhythm. Lungs are clear to auscultation bilaterally. Abdomen is soft, nontender, normoactive bowel sounds throughout. She does have CVA tenderness noted on the right. Extremities without cyanosis, clubbing. Posterior calves are nontender. Peripheral pulses are equal. Skin is warm and dry. Patient is awake, alert, neurological exam is nonfocal. Course - Re-evaluation Re-evalutation: 12/10/19 19:14 Patient presents to the emergency department for evaluation. Interpreting services were used for all interviews and examination. In short, this patient has known pyelonephritis, did grow E. coli from a blood culture. On exam here she is afebrile. Her vitals are normal. Her leukocytosis is improved. Her urine has improved. She is tolerating the Keflex well. I reviewed the patient's recent microbiology studies. I will give her a dose of IV Cipro, which reveals an TESSY of 1 on urine culture. Clinically, the patient is not septic. She is feeling significantly improved. I am giving her a dose of IV antibiotics, but I believe just extending the frequency and duration of the Keflex is appropriate treatment given her lack of systemic symptoms and her overall clinical improvement. I explained this to the patient in great detail. I told her that she needs to get a thermometer. She needs to check her temperature twice daily. If she develops a fever of 100.4 or higher she needs to immediately return. I also explained to her she needs to follow-up with her primary care provider as soon as possible. I will give her referral information to her primary care physician operations/dispatch. The patient states she does have insurance. She understands any clinical worsening of any sort should prompt her to immediately return. Otherwise she is given IV Cipro and instructions to increase her Keflex to 4 times a day. I will write her for 2 weeks of this medication, and have her follow-up closely. - Vital Signs Vital signs: Temp Pulse Resp BP Pulse Ox 98.4 F 90 18 141/85 H 97 12/10/19 15:04 12/10/19 15:04 12/10/19 15:04 12/10/19 15:04 12/10/19 15:04 - Laboratory Result Diagrams: 12/10/19 15:30 12/10/19 15:30 Laboratory results interpreted by me: 12/10/19 12/10/19 12/10/19 15:30 15:30 15:30 Hgb 11.6 L Hct 34.7 L RDW 15.3 H Glucose 151 H AST 47 H ALT 38 H Urine Blood MODERATE H Urine Urobilinogen 2.0 H Ur Leukocyte Esterase TRACE H Discharge - Discharge Clinical Impression: E coli bacteremia, Pyelonephritis of right kidney Condition: Stable Disposition: HOME, SELF-CARE Instructions: Pyelonephritis ([facility]) Additional Instructions: You did grow bacteria in your blood. Overall, however, it seems that you are improving clinically. You are to continue the antibiotic you are taking, but you are to take it 4 times a day instead of 3 times a day. I will extend the period of time for which you take this medication as well. Please follow-up with a primary care provider this week. You have been referred to our on-call provider for further care. Take your temperature twice daily. If you develop a temperature of 100.4 or greater, began vomiting, have increased pain, or any other new or concerning symptoms of any sort, you need to return immediately to the emergency department for reevaluation.
[2019-12-10 20:10] VITALS: BP 133/91
== END 2019-12-10 20:13 | disposition home or self-care (01) ==
LOC: ER 15:01
DX: A49.8 Other bacterial infections of unspecified site (principal); R78.81 Bacteremia; N12 Tubulo-interstitial nephritis, not specified as acute or chronic
CPT/HCPCS: 99283; 96365; 36415; 85025; 80053; 81001; J0744

== ENCOUNTER → 2020-04-19 | Outpatient (CLI) | payer BC ==
[2020-04-19 10:11] LABS: ABSOLUTE BASOPHILS # (AUTO) 0.1 10^3/uL (0.0-0.2); ABSOLUTE EOSINOPHILS # (AUTO) 0.4 10^3/uL (0.0-0.6); ABSOLUTE LYMPHOCYTES (AUTO) 2.6 10^3/uL (0.5-4.7); ABSOLUTE MONOCYTES (AUTO) 0.4 10^3/uL (0.1-1.4); ABSOLUTE NEUT (AUTO) 3.9 10^3/uL (1.7-8.2); BASOPHILS % (AUTO) 1.2 % (0-2); EOSINOPHILS % (AUTO) 5.8 % (0-6); HEMATOCRIT 39.5 % (36.0-47.0); HEMOGLOBIN 13.2 g/dL (12.0-15.5); LYMPHOCYTES % (AUTO) 35.2 % (13-45); MEAN CORPUSCULAR HEMOGLOBIN 26.4 pg (27.0-33.4); MEAN CORPUSCULAR HGB CONC 33.5 g/dL (32.0-36.0); MEAN CORPUSCULAR VOLUME 79 fl (80-97); MONOCYTES % (AUTO) 5.8 % (3-13); PLATELET COUNT 322 10^3/uL (150-450); RED BLOOD COUNT 5.01 10^6/uL (3.72-5.28); TOTAL CELLS COUNTED % (AUTO) 100 %; WHITE BLOOD COUNT 7.4 10^3/uL (4.0-10.5)
[2020-04-19 10:26] LABS: ALBUMIN 4.7 g/dL (3.5-5.0); ALKALINE PHOSPHATASE 152 U/L (38-126); ANION GAP 14 (5-19); ASPARTATE AMINO TRANSFERASE 143 U/L (14-36); BILIRUBIN,DIRECT 0.2 mg/dL (0.0-0.4); BILIRUBIN,TOTAL 0.3 mg/dL (0.2-1.3); BLOOD UREA NITROGEN 15 mg/dL (7-20); CALCIUM 9.7 mg/dL (8.4-10.2); CARBON DIOXIDE 23 mmol/L (22-30); CHLORIDE 101 mmol/L (98-107); CHOLESTEROL 321.88 mg/dL (0-200); POTASSIUM 4.6 mmol/L (3.6-5.0); TOTAL PROTEIN 8.5 g/dL (6.3-8.2); TRIGLYCERIDES 345 mg/dL (<150)
[2020-04-19 10:37] LABS: DIRECT LDL 219 mg/dL (<100)
[2020-04-19 10:38] LABS: GLUCOSE 206 mg/dL (75-110)
== END ==
LOC: OD 08:06
PROVIDERS: ATTEND Family Medicine Geriatric Medicine
DX: N12 Tubulo-interstitial nephritis, not specified as acute or chronic (principal); E03.9 Hypothyroidism, unspecified; E66.3 Overweight; Z79.899 Other long term (current) drug therapy
CPT/HCPCS: 36415; 80053; 80061; 80074; 82947; 82950; 82977; 83036; 84443; 85025

== ENCOUNTER → 2020-05-05 | Outpatient (CLI) | payer BC ==
--- NOTE | 2020-05-05 13:20 | RADIOLOGY REPORT (SQ) ---
EXAM DESCRIPTION: CERV SP 4 OR 5 VIEWS IMAGES COMPLETED DATE/TIME: 05/05/2020 11:16 am REASON FOR STUDY: (M54.2)CERVICALGIA M54.2 CERVICALGIA COMPARISON: None. NUMBER OF VIEWS: Five views. TECHNIQUE: AP, lateral, obliques and odontoid radiographic images acquired of the cervical spine. LIMITATIONS: None. FINDINGS: MINERALIZATION: Normal. ALIGNMENT: Anatomic. VERTEBRAE: Vertebral bodies of normal height. DISCS: No significant osteophytes or sclerosis. Disc height maintained. FORAMINA: No osteophytes or foraminal narrowing. LATERAL AND POSTERIOR ELEMENTS: Facets, lateral masses and spinous processes without significant find ings. HARDWARE: None in the spine. SOFT TISSUES: No masses or calcifications. Lung apices clear. OTHER: No other significant finding. IMPRESSION: NO SIGNIFICANT RADIOGRAPHIC FINDING IN THE CERVICAL SPINE. TECHNICAL DOCUMENTATION: JOB ID: [id number] 2010 [employer]- All Rights Reserved Reading location - IP/workstation name: [email or web address]
== END ==
LOC: RAD 10:53
PROVIDERS: ATTEND Family Medicine Geriatric Medicine
DX: M54.2 Cervicalgia (principal)
CPT/HCPCS: 72050

== ENCOUNTER → 2020-05-17 | Outpatient (CLI) | payer BC ==
[2020-05-19 05:37] LABS: CREATININE URINE 128.2 mg/dL (Not Estab.); MICROALBUMIN URINE 162.3 ug/mL (Not Estab.)
== END ==
LOC: OD 08:20
PROVIDERS: ATTEND Family Medicine Geriatric Medicine
DX: E03.9 Hypothyroidism, unspecified (principal); R94.5 Abnormal results of liver function studies; E11.9 Type 2 diabetes mellitus without complications; Z79.899 Other long term (current) drug therapy
CPT/HCPCS: 36415; 82043; 82150; 82570; 83690; 84443

== ENCOUNTER → 2020-06-14 | Outpatient (CLI) | payer BC | LOC: OD 09:19 | PROVIDERS: ATTEND Family Medicine Geriatric Medicine | DX: E03.9 Hypothyroidism, unspecified (principal); Z79.899 Other long term (current) drug therapy | CPT/HCPCS: 36415; 84443 ==